=== PATIENT | female | born 1930 | race Caucasian/White ===

== ENCOUNTER → 2016-12-28 | Outpatient (CLI) | payer OTHER, BC | LOC: BMCIMAGING 10:21 | DX: Z12.31 Encounter for screening mammogram for malignant neoplasm of breast (principal) | CPT/HCPCS: G0202 ==

== ENCOUNTER → 2017-01-11 | Outpatient (CLI) | payer OTHER, BC | LOC: BMCIMAGING 13:06 | DX: Z12.39 Encounter for other screening for malignant neoplasm of breast (principal); R92.2 Inconclusive mammogram | CPT/HCPCS: 76641; G0206 ==

== ENCOUNTER → 2018-04-28 | Outpatient (CLI) | payer OTHER, BC | LOC: BMCIMAGING 12:05 | PROVIDERS: ATTEND Family Medicine | DX: Z12.31 Encounter for screening mammogram for malignant neoplasm of breast (principal) ==